=== PATIENT | female | born 1990 | race Caucasian/White ===

== ENCOUNTER 2021-04-29 13:49 | Emergency (ER) | payer MEDICAID, SELFPAY ==
--- NOTE | 2021-04-29 19:04 | NUR.NOTE ---
Patient left without being seen.Nursing Note:
== END 2021-04-29 14:23 ==
PROVIDERS: PCP Nurse Practitioner Family
DX: Z53.21 Procedure and treatment not carried out due to patient leaving prior to being seen by health care provider (principal)

== ENCOUNTER 2021-05-07 02:47 | Outpatient (CLI) | payer MEDICAID, SELFPAY ==
[2021-05-07 10:42] LABS: Abs Immature Grans 0.03 10^3/uL (0.0-0.06); Absolute Basophil Count 0.04 10^3/uL (0.0-0.2); Absolute Eosinophil Count 0.16 10^3/uL (0.0-0.7); Absolute Lymphocyte Count 1.96 10^3/uL (1.2-3.4); Absolute Monocyte Count 0.43 10^3/uL (0.1-0.8); Basophils % 0.5; Eosinophils % 1.8; HCT 41.3 % (36.0-46.0); HGB 13.4 g/dL (11.2-15.7); Immature Grans % 0.3; Lymphocytes % 22.2; MCH 30.6 pg (27.0-33.0); MCHC 32.4 % (32.0-36.0); MCV 94.3 fL (80-95); MPV 8.4 fL (8.0-11.0); Monocytes % 4.9; Neutrophils % 70.3; Nucleated RBC 0 %; Platelet Count 278 10^3/uL (130-400); RBC 4.38 10^6/uL (3.93-5.22); RDW 12.9 % (11.7-14.6); RDW-SD 45.1 fL; WBC 8.82 10^3/uL (4.4-10.8)
[2021-05-07 10:59] LABS: Hemoglobin A1C 5.3 % (<5.7)
[2021-05-07 13:09] LABS: ALT 28 U/L (14-59); AST 20 U/L (15-37); Albumin 3.9 g/dL (3.4-5.0); Alkaline Phosphatase 85 U/L (46-116); Anion Gap 8.4 mmol/L (3-11); BUN 18 mg/dL (7-18); Bilirubin, Total 0.1 mg/dL (0.2-1.0); CO2 27.6 mmol/L (21.0-32.0); CREATININE 0.7 mg/dL (0.55-1.02); Calculated LDL 125 mg/dL (<100); Chloride 103 mmol/L (98-107); Cholesterol 184 mg/dL (<200); Glucose 100 mg/dL (74-106); HDL Cholesterol 48 mg/dL (40-60); Potassium 4.6 mmol/L (3.5-5.1); Sodium 139 mmol/L (136-145); TSH (W/Ref FT4) 1.34 uIU/mL (0.36-3.74); Triglyceride 59 mg/dL (<150)
[2021-05-08 15:50] LABS: Alcohol Negative mg/dL (Cutoff: 10); Amphetamines Presumptive Positive ng/mL; Barbiturates Negative; Benzodiazepines Negative; Cocaine Negative; Opiates Negative; Phencyclidine Negative ng/mL (Cutoff: 25); Tetrahydrocannabinol Presumptive Positive ng/mL (Cutoff: 50)
[2021-05-31 15:56] LABS: Amphetamine 2044 ng/mL (Cutoff: 25); Amphetamines Interpretation Positive.; MDA (Ecstasy Metabolite) Negative ng/mL (Cutoff: 25); MDMA (Ecstasy) Negative ng/mL (Cutoff: 25); Methamphetamine Negative ng/mL (Cutoff: 25); Phentermine Negative ng/mL (Cutoff: 25); Pseudoephedrine/Ephedrine Negative ng/mL (Cutoff: 25)
[2021-05-31 16:45] LABS: Delta-9 CarboxyThc by LC-MS/MS 180 ng/mL (Cutoff:<3)
[2021-05-31 16:46] LABS: Carboxy-THC Interpretation Positive
== END 2021-05-07 02:48 | disposition home or self-care (01) ==
LOC: LBO 02:48
PROVIDERS: PCP Nurse Practitioner Family
DX: Z79.899 Other long term (current) drug therapy (principal)
CPT/HCPCS: 36415; 80053; 80061; 80307; 80324; 80349; 83036; 84443; 85025

== ENCOUNTER 2021-06-07 11:57 | Emergency (ER) | payer MEDICAID, SELFPAY ==
--- NOTE | 2021-06-07 15:24 | NUR.NOTE ---
is here for a covid test. states she was exposed to someone with covid today. no symptoms. 36.2, 99% r/a, 72, 114/73. states she will to go to urgent care to get a covid test instead of waiting here for assessment. Nursing Note:
== END 2021-06-07 12:38 | disposition left before discharge ==
LOC: ER 12:43
PROVIDERS: PCP Nurse Practitioner Family
DX: Z20.822 Contact with and (suspected) exposure to COVID-19 (principal); Z53.29 Procedure and treatment not carried out because of patient's decision for other reasons

== ENCOUNTER 2023-04-26 22:20 | Emergency (ER) | payer MEDICAID, SELFPAY ==
[2023-04-26 22:20] VITALS: BP 113/79; PULSE 72; RESP 18; TEMP 36.4; O2SAT 98
[2023-04-26 22:27] VITALS: BP 113/79; PULSE 72; RESP 18; TEMP 36.4; O2SAT 98
[2023-04-26] MEDS: Bupivacaine 0.5% Pres-Free 30 ML VIAL (22:33)
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
[2023-04-26] MEDS: Acetaminophen 500 MG TAB (22:45)
[2023-04-26] MEDS: Clindamycin 150 MG CAP, 12 CAPS/BTL 450 MG PO (22:46)
== END 2023-04-26 22:47 | disposition home or self-care (01) ==
LOC: ER 22:53
PROVIDERS: Emergency Provider Student in an Organized Health Care Education/Training Program; PCP Family Medicine
DX: K04.7 Periapical abscess without sinus (principal)
CPT/HCPCS: 41800; 64400; 99283; J0665

== ENCOUNTER 2023-05-31 08:18 | Emergency (ER) | payer MEDICAID, SELFPAY ==
[2023-05-31 08:21] VITALS: BP 132/75; PULSE 101; RESP 16; TEMP 36.1; O2SAT 98
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
[2023-05-31 08:44] LABS: Bilirubin Small (Negative); Blood Negative (Negative); Clarity Clear (Clear); Glucose Negative (Negative); Ketones Negative (Negative); Leukocyte Esterase Negative (Negative); Nitrite Negative (Negative); Specific Gravity >= 1.030 (1.005-1.025); Urobilinogen 0.2 mg/dL (Up to 0.2)
[2023-05-31 08:55] LABS: Bacteria Rare HPF (Negative); C & S Indicated? No/Sq. Contamination; Casts 0-2 Hyaline LPF (Negative); Crystals Negative HPF (Negative); Epithelial Cells Moderate HPF (Negative); Mucus Moderate (Negative); Other Cells Few Renal (Negative); RBC 0-2 HPF (0-2)
== END 2023-05-31 09:08 | disposition home or self-care (01) ==
PROVIDERS: Emergency Provider Emergency Medicine; PCP Family Medicine
DX: N75.0 Cyst of Bartholin's gland (principal); R30.0 Dysuria; F17.210 Nicotine dependence, cigarettes, uncomplicated
CPT/HCPCS: 81025; 99283; 81003; 81015